=== PATIENT | female | born 1940 | race American Indian/Alaskan Native ===

== ENCOUNTER 2016-09-23 10:23 | Day surgery (SDC) | payer MEDICARE ==
[2016-09-23 10:52] VITALS: BMI 28.7
[2016-09-23 11:17] VITALS: O2SAT 100
--- NOTE | 2016-09-23 11:33 | CP.SDSHP ---
Same Day Surgery H & P - Previous Medical/Surgical History Endocrine/Metabolic: Thyroid Disease - Allergies Allergies: Allergies No Known Allergies Allergy (Verified 04/25/13 22:57) - Physical Exam Vital Signs: Vital Signs 09/23/16 11:02 Temperature 97.7 F Pulse Rate 59 L Respiratory 18 Rate Blood Pressure 148/84 O2 Sat by Pulse 100 Oximetry - Date & Time Date: 09/23/16 Time: 11:33 Short Stay Discharge - Short Stay Discharge Admitting Diagnosis/Reason for Visit: PERSONAL HISTORY OF COLONIC POLYPS Disposition: HOME/ ROUTINE
[2016-09-23] MEDS ORDERED: Lidocaine Hydrochloride 5 ML INJ ONE (12:04)
[2016-09-23] MEDS ORDERED: Propofol 10 mg/ml Inj (20 ML) ONE (12:04)
[2016-09-23 12:58] VITALS: TEMP 96.9
[2016-09-23 13:21] VITALS: RESP 13
[2016-09-23 14:15] VITALS: BP 132/63; PULSE 59
== END 2016-09-23 14:12 | disposition home or self-care (01) ==
LOC: C.ENDO 10:23
PROVIDERS: ATTEND Colon & Rectal Surgery
DX: K57.90 Diverticulosis of intestine, part unspecified, without perforation or abscess without bleeding (principal); Z86.010 Personal history of colon polyps; K64.8 Other hemorrhoids
CPT/HCPCS: 45378; J2704